=== PATIENT | female | born 1970 | race Caucasian/White ===

== ENCOUNTER 2017-09-06 05:31 | Observation (INO) ==
[2017-09-06] MEDS ORDERED: Metoprolol Tartrate 25 MG Tablet PO SCH (06:30)
[2017-09-06] MEDS ORDERED: Chlorhexidine Gluconate 2% 1 Pack (2 Cloths) TOPICAL SCH (06:30)
[2017-09-06] MEDS ORDERED: Heparin - SQ 10,000 UNITS/ML Vial SQ ONE ×2 (06:35→06:45)
[2017-09-06] MEDS ORDERED: Sugammadex Inj 200 MG/2 ML Vial IV.PUSH ONE (06:45)
[2017-09-06] MEDS ORDERED: Sodium Chlor 0.9% Inj 500 ML IV.SIG SCH (07:00)
[2017-09-06] MEDS ORDERED: Famotidine PF Inj 20 MG/2 ML Vial ONE (07:03)
[2017-09-06] MEDS ORDERED: Ketorolac Inj 30 MG/ML (IVP) Vial IV.PUSH ONE (11:03)
[2017-09-06] MEDS ORDERED: Lidocaine PF 1% Inj 5 ML Syringe INFILTRATN ONE (11:03)
[2017-09-06] MEDS ORDERED: Glycopyrrolate Inj 1 MG/5 ML Syringe IV.PUSH ONE (11:03)
[2017-09-06] MEDS ORDERED: Normosol-R pH 7.4 Inj 1,000 ML IV.CONT ONE (11:03)
[2017-09-06] MEDS ORDERED: Neostigmine Inj 5 MG/5 ML Syringe IV.PUSH ONE (11:03)
[2017-09-06] MEDS ORDERED: KCL 20 mEq/D5W/NaCl 0.45% Inj 1,000 ML ONE (11:12)
[2017-09-06] MEDS ORDERED: fentaNYL Citrate Inj 100 MCG/2 ML Ampul ONE (11:35)
[2017-09-06] MEDS ORDERED: Morphine Inj 4 MG/ML Vial ONE (11:35)
[2017-09-06] MEDS ORDERED: Ketorolac Inj 30 MG/ML (IVP) Vial IV.PUSH SCH (12:00)
[2017-09-06] MEDS ORDERED: *morphine SULFATE 4 MG/ML PERIprocedure ONLY ONE (12:36)
--- NOTE | 2017-09-06 12:37 | MP ---
cc: Marimar Walsh MD,Merline Wei MD DATE OF OPERATION: 09/06/2017 PREOPERATIVE DIAGNOSIS: 1. Uterine mass. 2. Endometriosis pain. POSTOPERATIVE DIAGNOSIS: 1. Uterine mass (felt to be leiomyomas). 2. Endometriosis. 3. Extensive pelvic adhesions. PROCEDURE: Exploratory laparotomy, total abdominal hysterectomy, bilateral salpingo-oophorectomy, right ureterolysis, extensive lysis of adhesions. SURGEON: Marimar Walsh MD BLOCK TRIMMER: Bourbonabhilash gamez anesthesia. ANESTHESIA: General endotracheal anesthesia. ESTIMATED BLOOD LOSS: 200 mL. URINE OUTPUT: 100 mL. IV FLUIDS: 2200 mL. HISTORY: This is a 47-year-old female found on exam and imaging to have a markedly enlarged uterus, retroverted with changes suggestive of leiomyomas with the mass in the fundus of the uterus wedged in the posterior cul-de-sac with extrinsic compression on all surrounding structures. She has a history of endometriosis and has previously had laparoscopy confirming such. She is counseled regarding options and has undergone several months of Depo Lupron therapy. She reports some notable improvement in her symptoms of pain and pressure, some improvement in her bowel and bladder function after being on the Depo Lupron and there has been a subjective decrease in the size of the uterus. On physical examination, there has been some objective improvement with reduction in the size of the uterus as well. She was recently again counseled and seen again today in the preop holding. The findings are reviewed. The surgical plan of care discussed. She is absolutely certain that she wishes to move forward with surgery. She has reviewed the pros and cons of having the tubes and ovaries removal versus leaving them in situ. She is absolutely in favor of complete removal of both tubes and ovaries, as well as a complete hysterectomy. She understands the reproductive and menopausal ramifications. FINDINGS: Upon entry into the peritoneal cavity, the uterus is enlarged and retroverted such that the fundus of the uterus is wedged in the posterior cul-de-sac. The uterus was symmetrically enlarged thought to be probably due to leiomyomas. Throughout the pelvis, there is some increased vasculature suggestive of venous congestion. The left tube and ovary has a functional cyst. The right tube and ovary were fixed to the posterior cul-de-sac and against the right pelvic sidewall and there is what appears to be endometriosis on the posterior lower uterine segment and cervix on the right side with the rectosigmoid adherent in this region. There were no appreciably enlarged pelvic or periaortic lymph nodes. The liver, diaphragm edges were smooth. There were no adhesions in the abdomen. Large and small bowel and adjacent mesentery appeared normal with no peritoneal implants or other changes detected. Frozen section analysis of the specimens removed suggested them to be leiomyomas. No overt evidence of malignancy. DESCRIPTION OF PROCEDURE: She was taken to the operating room, placed in the dorsal lithotomy position after general endotracheal anesthesia was administered. A timeout was undertaken. She was identified by site recognition and hospital ID bracelet and the proposed procedure was reviewed and confirmed. She was carefully positioned in padded Praveen stirrups. Her arms were secured out to the sides. She was prepped and draped in a sterile fashion. Swanson catheter placed in the bladder. We confirmed an orogastric tube in the stomach on suction and we completed prepping and draping in anticipation of surgery. A midline incision was made from the symphysis up towards the umbilicus, carried down to the level of the fascia. The fascia was entered. The rectus muscles were in the midline. The peritoneal cavity was entered. Some fluid was collected from the pelvis for cytology. The anatomy was explored with findings as described above. Lap pads and Bookwalter retractor were set up to assist in surgical exposure. The retroverted uterus was wedged in the posterior cul-de-sac, but was able to be elevated lysing minimal adhesions and the lateral angles of the uterus were grasped with clamps to assist in elevation. The right round ligament was doubly suture ligated and transected. The anterior and posterior leafs of the broad ligament were opened. The right ureter was identified and the right infundibulopelvic ligament was isolated. The intervening peritoneum was opened. The infundibulopelvic ligament was isolated to the level of the pelvic brim where it was doubly clamped, cut, and doubly suture ligated. Extensive lysis of adhesions were carried out to mobilize the bowel from its attachment to the posterior uterus and cervix and the ureter needed to be freed from these adhesions as well, so with sharp and blunt dissection and a right angle clamp, the ureter was isolated along its course in the pelvis. The adjacent scar tissue was taken down with sharp dissection and was continued along the course in the pelvis to free the ureter until it could be retracted laterally. The vesicouterine peritoneum was dissected off the right lower uterine segment and cervix and the right uterine vessels were skeletonized. Attention was directed toward the left side where the left round ligament was doubly suture ligated and transected. The anterior and posterior leafs of the broad ligament were opened. The left ureter was identified. The left infundibulopelvic ligament was isolated. The intervening peritoneum was opened. Infundibulopelvic ligament was isolated to the level of the pelvic brim where it was doubly clamped, cut, and doubly suture ligated. The posterior peritoneum and adhesions were taken down from the left side of the uterus and cervix and the rectovaginal space was entered with sharp dissection, mobilizing to further retract the bowel from its attachments posteriorly. More sharp dissection was carried out to mobilize the bowel until the uterosacral ligaments were isolated bilaterally. The left uterine vessels were skeletonized and the left vesicouterine peritoneum was dissected off the lower uterine segment and cervix. Now, the vessels were exposed bilaterally and they were doubly clamped, cut, and suture ligated bilaterally, which caused good blanching of the uterus. On the right side, the cardinal, paracervical and uterosacral ligaments were taken down in a stepwise fashion where they were clamped, cut, and suture ligated with continued lysis of adhesions along the way to free the specimen until the attachments along the right side of the uterus and cervix were free and a curved Castaneda clamp could be placed below the cervix at the lateral vaginal angle. Attention was directed again to the left side where the left uterine vessels were now cut, and suture ligated. The cardinal, paracervical and uterosacral ligaments were taken down in a stepwise fashion where they were clamped, cut and suture ligated until the attachments were free and a curved Castaneda clamp was placed below the cervix at the lateral vaginal angle. The specimen was removed with sharp dissection cutting across the vaginal apex below the cervix. The specimen was inspected and the entire cervix was removed and the specimen included uterus, cervix, both tubes and ovaries. The vaginal cuff was supported at the angles with [id number] 0 Vicryl sutures incorporating the edge of the peritoneum and the uterosacral ligament. The vaginal cuff was closed and rendered hemostatic and supported with interrupted [id number] 0 Vicryl sutures. Visual inspection confirmed the bladder was intact. There was a good margin between the bladder edge and the vaginal cuff suture line. There was good peristalsis of ureters bilaterally. The pelvis was irrigated. Small bleeders rendered hemostatic with bipolar cautery. The integrity of the bowel wall was intact. There was some superficial irritation on the serosa and some adjacent retroperitoneal dissection, but the wall of bowel appeared intact. The pelvis was filled with fluid. The bowel was occluded at the pelvic brim. A rigid proctosigmoidoscope was used to insufflate air under pressure into the rectosigmoid. The rectosigmoid dilated under pressure. There were no air bubbles, no extravasation, which confirmed the visual finding of intact bowel wall and then the gas was released from the rectosigmoid. A change of sterile gloves and gown were undertaken. A 3-0 Vicryl suture was used to oversew and reinforce where the serosa was irritated and to reapproximate adjacent peritoneum in the pelvis to the colon. The pelvis was again thoroughly irrigated. All sites hemostatic. Preliminary pathology came back benign. Surgicel SNoW was placed in pelvis across the dissection bed and across the vaginal cuff and the sidewalls to assist in continued hemostasis. It was felt that all reasonable surgical objectives had been completed. The lap pads and Bookwalter retractor were removed. Visual and manual inspection confirmed there were no remaining foreign objects in the peritoneal cavity. Preliminary counts were correct. The fascia was closed with a running looped PDS suture starting at the ends and meeting in the midpoint where the suture was tied and the knot was buried below the edge of the fascia. Interrupted [id number] 0 Vicryl sutures were used intermittently along the fascia to reinforce the fascial closure as well. The subcutaneous tissue was irrigated, 2-0 Vicryls were used to reapproximate Yuval's fascia and then a 3-0 Vicryl running subcuticular was used to close the skin edges. Steri-Strips and dry sterile dressing and abdominal binder were then used. Pelvic exam confirmed there were no remaining foreign objects in the vagina. Final counts were correct. She was returned to dorsal supine position and was pending reversal of anesthesia, when I left the operating room to precede her to the postanesthesia care unit. MD LEONELA De Guzman/DIMITRIOS , 11:54 AM , 12:36 PM
[2017-09-06] MEDS ORDERED: *morphine SULFATE 10 MG/ML PERIprocedure ONLY ONE (13:07)
[2017-09-06] MEDS: KCL 20 mEq/D5W/NaCl 0.45% Inj 1,000 ML IV.CONT SCH ×2 (13:12→19:56)
[2017-09-06] MEDS: Ketorolac Inj 30 MG/ML (IVP) Vial IV.PUSH SCH ×2 (14:40→19:54)
[2017-09-06] MEDS ORDERED: Morphine Inj 30 MG/30 ML PCA.VIAL PCA PRN (16:07)
[2017-09-06] MEDS ORDERED: Naloxone Inj 0.4 MG/ML Vial IV.PUSH PRN (16:07)
[2017-09-06] MEDS ORDERED: Morphine Inj 4 MG/ML Vial IV.SIG ONE (16:07)
[2017-09-06] MEDS ORDERED: Morphine Inj 4 MG/ML Vial IV.CONT PRN (19:37)
[2017-09-06] MEDS: LORazepam 0.5 MG Tablet PO PRN (19:55)
[2017-09-07] MEDS: Ketorolac Inj 30 MG/ML (IVP) Vial IV.PUSH SCH ×2 (02:16→08:35)
[2017-09-07] MEDS: KCL 20 mEq/D5W/NaCl 0.45% Inj 1,000 ML IV.CONT SCH ×2 (03:04→03:43)
[2017-09-07] MEDS: LORazepam 0.5 MG Tablet PO PRN (04:00)
[2017-09-07 05:59] LABS: Baso % (Auto) 0.2 % (0.0-2.0); Eos % (Auto) 0.4 % (0.0-4.0); Hematocrit 35.6 % (35.0-46.0); Hemoglobin 11.9 gm/dL (11.6-15.3); Lymph # (Auto) 1.4 th/mm3 (1.0-4.8); Mean Corpuscular HGB Conc 33.4 % (32.0-36.0); Mean Corpuscular Hemoglobin 30.8 pg (27.0-34.0); Mean Platelet Volume 9.8 fL (7.0-11.0); Mono # (Auto) 0.8 th/mm3 (0.0-0.9); Neut # (Auto) 7.5 th/mm3 (1.8-7.7); Neut % (Auto) 77.4 % (16.0-70.0); Platelet Count 182 th/mm3 (150-450); Red Blood Count 3.87 mil/mm3 (4.00-5.30); Red Cell Distribution Width 12.9 % (11.6-17.2); White Blood Count 9.7 th/mm3 (4.0-11.0)
[2017-09-07 06:19] LABS: Anion Gap 6 meq/L (5-15); Blood Urea Nitrogen 8 mg/dL (7-18); Calcium 8.4 mg/dL (8.5-10.1); Carbon Dioxide 25.2 meq/L (21.0-32.0); Chloride 106 meq/L (98-107); Glomerular Filtration Rate Greater Than 89 mL/min (>89); Glucose,Random 121 mg/dL (74-106); Potassium 3.6 meq/L (3.5-5.1); Sodium 137 meq/L (136-145)
--- NOTE | 2017-09-07 07:15 | P.PN ---
Subjective Interval history: c/o pain overnight, irritation from the ugarte, difficulty sleeping, some nausea all somewhat improved this morning Physical Exam Vital signs: Vital Signs 09/06/17 11:26 09/06/17 11:30 09/06/17 11:45 Temperature 96.2 F L Pulse Rate 62 57 L 67 Respiratory Rate 16 12 12 Blood Pressure 89/49 L 88/52 L 93/54 L Pulse Oximetry 100 100 100 09/06/17 12:00 09/06/17 12:15 09/06/17 12:30 Temperature Pulse Rate 86 73 88 Respiratory Rate 12 12 12 Blood Pressure 98/56 L 103/55 L 104/59 L Pulse Oximetry 100 100 100 09/06/17 12:45 09/06/17 13:00 09/06/17 13:40 Temperature 97.1 F L 97.8 F Pulse Rate 65 65 82 Respiratory Rate 12 12 18 Blood Pressure 102/55 L 103/58 L 96/60 L Pulse Oximetry 100 100 09/06/17 13:45 09/06/17 15:36 09/06/17 15:50 Temperature 98.2 F Pulse Rate 71 71 Respiratory Rate 12 18 18 Blood Pressure 112/56 L 101/60 Pulse Oximetry 100 09/06/17 20:02 09/06/17 21:00 09/06/17 23:48 Temperature 98.0 F 98.1 F Pulse Rate 76 75 Respiratory Rate 22 16 18 Blood Pressure 104/60 94/53 L Pulse Oximetry 100 100 09/07/17 02:51 09/07/17 03:49 Temperature 98.3 F Pulse Rate 70 Respiratory Rate 18 18 Blood Pressure 85/44 L Pulse Oximetry 98 Intake & Output 09/06/17 09/07/17 09/07/17 18:59 06:59 18:59 Intake Total 3200 / 3200 2480 / 2480 Output Total 1000 / 1000 2750 / 2750 Balance 2200 / 2200 -270 / -270 Intake: IV 1000 / 1000 1999 / 1999 D5W/1/2NS + KCL 20 mEq Inj 1999 / 1999 000 ML @ 125 mls/hr IV.CONT . Q8H MERLENE Rx#:[id number] LR 1000 mL Inj 1,000 ML @ 30 1000 / 1000 mls/hr IV.SIG .Q24H MERLENE Rx#: [id number] Oral 480 / 480 Anesthesia Amount 2200 / 2200 Output: Urine 800 / 800 Estimated Blood Loss 200 / 200 Urine Amount (Catheter) 2750 / 2750 3-way Urethral 2750 / 2750 Other: Bladder Irrigation Fluid - Amount Drained 3-way Urethral 100 - Constitutional no acute distress - Routine Respiratory Exam Present: CTA bilaterally - Routine Cardiovascular Exam Present: RRR - Routine Abdominal Exam Present: soft, wound - Routine Extremities Exam Present: pulses intact (non-tender) - Routine Neurological Exam Present: alert, oriented X3 - Urinary Catheter Management 3-way Urethral Cath placed during this visit: yes Reason for continuing: Other continuation reason Insertion date: 09/06/17 Insertion time: 07:54 Results - Labs CBC & Chem 7: 09/07/17 04:57 09/07/17 04:57 Laboratory Results - last 24 hr 09/06/17 09/07/17 09/07/17 06:25 04:57 04:57 WBC 9.7 RBC 3.87 L Hgb 11.9 Hct 35.6 MCV 92.0 MCH 30.8 MCHC 33.4 RDW 12.9 Plt Count 182 MPV 9.8 Neut % (Auto) 77.4 H Lymph % (Auto) 14.0 Lucas % (Auto) 8.0 Eos % (Auto) 0.4 Baso % (Auto) 0.2 Neut # (Auto) 7.5 Lymph # (Auto) 1.4 Lucas # (Auto) 0.8 Eos # (Auto) 0.0 Baso # (Auto) 0.0 WBC Differential . Differential Comment Auto diff final Sodium 137 Potassium 3.6 Chloride 106 Carbon Dioxide 25.2 Anion Gap 6 BUN 8 Creatinine 0.66 Estimated GFR Greater than 89 Random Glucose 121 H Calcium 8.4 L Blood Type A Positive Blood Type Recheck Not needed Antibody Screen Negative MTS Gel Crossmatch See Detail Bld Prod Order Comment Assessment and Plan - Plan POD#1 doing well in early post-op period q&a regarding surgical findings, steps taken, preliminary path increase OOB activity, spirometry, d/c ugarte when ambulatory, adat
--- NOTE | 2017-09-07 13:57 | P.PNONC ---
Subjective Interval history: POD #1 ....update RN contacted Dr. Walsh as patient would like to be discharged home she has been OOB to urinate multiple times denies any Nausea or vomiting pain controlled she states that her husbands works from home and will be available to help care for her I reviewed her restrictions and limitations patient able to remove abdominal dressing on Wednesday and will continue to use abdominal binder discussed s/s of ileus, pneumonia and post op complications to contact our office if she has any of these s/s pt agreed. Objective Vital Signs/Intake & Output: Vital Signs 09/06/17 15:36 09/06/17 15:50 09/06/17 20:02 Temperature 98.2 F 98.0 F Pulse Rate 71 76 Respiratory Rate 18 18 22 Blood Pressure 101/60 104/60 Pulse Oximetry 100 09/06/17 21:00 09/06/17 23:48 09/07/17 02:51 Temperature 98.1 F Pulse Rate 75 Respiratory Rate 16 18 18 Blood Pressure 94/53 L Pulse Oximetry 100 09/07/17 03:49 09/07/17 08:00 09/07/17 12:05 Temperature 98.3 F 97.8 F 98.1 F Pulse Rate 70 85 68 Respiratory Rate 18 16 18 Blood Pressure 85/44 L 102/70 110/64 Pulse Oximetry 98 Intake & Output 09/06/17 09/07/17 09/07/17 18:59 06:59 18:59 Intake Total 3200 / 3200 2480 / 2480 Output Total 1000 / 1000 2750 / 2750 Balance 2200 / 2200 -270 / -270 Intake: IV 1000 / 1000 1999 / 1999 D5W/1/2NS + KCL 20 mEq Inj , 1999 / 1999 000 ML @ 125 mls/hr IV.CONT . Q8H MERLENE Rx#:[id number] LR 1000 mL Inj 1,000 ML @ 30 1000 / 1000 mls/hr IV.SIG .Q24H MERLENE Rx#: [id number] Oral 480 / 480 Anesthesia Amount 2200 / 2200 Output: Urine 800 / 800 Estimated Blood Loss 200 / 200 Urine Amount (Catheter) 2750 / 2750 3-way Urethral 2750 / 2750 Other: Bladder Irrigation Fluid - Amount Drained 3-way Urethral 100 Result Diagrams: 09/07/17 04:57 09/07/17 04:57 Laboratory Results: Laboratory Results - last 24 hr 09/07/17 09/07/17 04:57 04:57 WBC 9.7 RBC 3.87 L Hgb 11.9 Hct 35.6 MCV 92.0 MCH 30.8 MCHC 33.4 RDW 12.9 Plt Count 182 MPV 9.8 Neut % (Auto) 77.4 H Lymph % (Auto) 14.0 [place] % (Auto) 8.0 Eos % (Auto) 0.4 Baso % (Auto) 0.2 Neut # (Auto) 7.5 Lymph # (Auto) 1.4 [place] # (Auto) 0.8 Eos # (Auto) 0.0 Baso # (Auto) 0.0 WBC Differential . Differential Comment Auto diff final Sodium 137 Potassium 3.6 Chloride 106 Carbon Dioxide 25.2 Anion Gap 6 BUN 8 Creatinine 0.66 Estimated GFR Greater than 89 Random Glucose 121 H Calcium 8.4 L Medications: Active Medications Generic Name Dose Route Start Last Admin Trade Name Freq PRN Reason Stop Dose Admin Lactated Ringer's 1,000 mls @ 30 mls/hr 09/06/17 06:30 09/06/17 08:30 Lr 1000 Ml Inj IV.SIG 09/09/17 06:25 Infused .Q24H MERLENE Infusion Potassium Chloride/Dextrose/Sod Cl 1,000 mls @ 125 mls/hr 09/06/17 11:15 03:43 D5w/1/2ns + Kcl 20 Meq Inj IV.CONT 125 mls/hr .Q8H MERLENE Administration Ketorolac Tromethamine 30 mg 09/06/17 14:00 09/07/17 08:35 Toradol Inj IV.PUSH 09/08/17 08:01 30 mg Q6H MERLENE Administration Lorazepam 0.25 mg 09/06/17 11:02 09/07/17 04:00 Ativan PO 0.25 mg Q8H PRN Administration ANXIETY Morphine Sulfate 4 mg 09/06/17 19:37 09/06/17 19:42 Morphine Inj IV.CONT 4 mg Q3H PRN Administration BREAKTHROUGH PAIN Oxycodone/Acetaminophen 1 tab 09/06/17 11:02 09/07/17 08:36 Percocet 5/325 Mg PO 1 tab Q4H PRN Administration PAIN SCALE 1 TO 5 Oxycodone/Acetaminophen 2 tab 09/06/17 11:02 09/07/17 00:35 Percocet 5/325 Mg PO 2 tab Q4H PRN Administration PAIN SCALE 6 TO 10 Objective Remarks: GENERAL: Well-nourished, well-developed patient. SKIN: Warm and dry. HEAD: Normocephalic. EYES: No scleral icterus. No injection or drainage. NECK: Supple LYMPHATIC: No adenopathy. CARDIOVASCULAR: Regular rate and rhythm without murmurs. RESPIRATORY: Breath sounds equal bilaterally. No accessory muscle use. GASTROINTESTINAL: Abdomen soft, dressings is c/d/i, abdominal binder EXTREMITIES: No cyanosis, or edema. MUSCULOSKELETAL: Adequate muscle tone. NEUROLOGICAL: No obvious focal deficit. Awake, alert, and oriented x3. PSYCHIATRIC: Appropriate mood and affect; insight and judgment normal. Assessment/Plan - Plan Ok to discharge home today OK to restart home meds Percocet 5/325 1mg PO Q 4 hours PRN pain #40 will get Colace to take BID to help with constipation will follow up as outpt in 2 weeks for final pathology reviewed restrictions will take IS home and continue to use - Attending Statement Dr. Walsh is agreeable to patient being discharged home today.
== END 2017-09-07 14:56 | disposition home or self-care (01) ==
LOC: H1EA 05:31 → HSDC 05:31 → HSDI 05:31 → EDSTATUS 07:30 → H1EA 14:13
PROVIDERS: ADMIT Obstetrics & Gynecology Gynecologic Oncology; ATTEND Obstetrics & Gynecology Gynecologic Oncology